=== PATIENT | female | born 1985 | race Caucasian/White ===

== ENCOUNTER 2018-11-10 10:16 | Outpatient (CLI) | payer OTHER | END 2018-11-10 12:31 | disposition home or self-care (01) | LOC: SONOGRAMA 10:16 | DX: R22.2 Localized swelling, mass and lump, trunk (principal) ==

== ENCOUNTER 2018-12-07 10:56 | Outpatient (CLI) | payer OTHER | END 2018-12-07 11:04 | disposition home or self-care (01) | LOC: RX STUDY 10:56 | DX: K22.0 Achalasia of cardia (principal); R13.19 Other dysphagia ==